=== PATIENT | female | born 1965 | race Caucasian/White ===

== ENCOUNTER 2019-07-19 07:00 | Outpatient (RCR) | payer BC, SELFPAY ==
--- NOTE | 2019-06-28 13:58 | HP.PTEVAL_ITS ---
Patient's Visit Information AMANDA TAN is a 54 year old F referred to Physical Therapy by JERRY BIRMINGHAM with a diagnosis of L shoulder pain. Date of Evaluation: 06/28/19 Physical Therapist: Michael Morrow, PT, ATC - Visit Plan Frequency: 2x /Week Duration: 4 Weeks Plan: c/s retraction ex's, postural education, PROM/MOBS to c/s, scap stab ex's, and HEP - Subjective Findings: Pt reports her L shoulder has been sore for 3 weeks. Pt reports she was moving a tall heavy dresser when she exoerienced L shoulder pain. Pt reports the pain progressively worsened which is why she went to her dr's. Pt reports she had xrays which revealed mild OA. Pt received a cortisone injeection on the , and so now she feels a little better. Pt notes sleep difficulty secondary to pain at this time. Pt has tingling and numbness which started one week ago that extends down her L UE all the way to her median nerve distribution. Pt has mild L sided neck pain. 4/10 pain at rest, 6/10 pain at rest (sitting in the chair at the dentist. Pt is R hand dom. - Pain L shoulder pain Pain Intensity (Out of 10): 4 Pain Intensity Range: 6 - Objective Neuro: L UE sensation is hyposensitive to light touch. R UE is WNL. B Bicepital reflex= 2/3. Palpation: Paiin on the distribution of the supraspinatus tendon. No obvious deformity. ROM: R shoulder flex= 165, abd= 165, ER= 90, IR WNL; L shoulder flex= 160, abd= 165, ER= 90, IR WNL. MMT: L slhoulder flex and ER= 4- /5. All other B UE MMT 5/5 throughout. C/S ROM: Pt is limited with ext, retraction, and L SB. all other motions WNL. Repeated movements of the C/S: RFIS provokes L UE radiculopathy. RRIS provoked pain at first, but then had NE afterwards. Special tests: pos compression and distraction test of the c/s - Goals Goal 1:: Decrease neck pain x 50% to aid wtih sleep Goal Time Frame: 2-4 Weeks Goal 2:: Decrease the frequency and intensity of L UE radiculopathy x 50% to aid with IADL's Goal Time Frame: 2-4 Weeks Goal 3:: Increase C/S ROM to WNL to aid with decreasing neck pain Goal Time Frame: 2-4 Weeks Goal 4:: I with HEP Goal Time Frame: 2-4 Weeks - Rehabilitation Potential Physical Therapy Diagnosis: Pt has L shoulder pain, limited cervical spine ROM, and L UE radiculopathy secondary to c/s disk derrangement. Rehabilitation Potential: Good - Anticipated Interventions Patient/Client Instruction: Educate patient on: Condition, Plan of Care For the Purpose of:: To improve self management Therapeutic Exercise to Include: Strength training, Endurance training, Postural training, Flexibilty training, Passive ROM, Active ROM, Jermaine Exercises, Scapular Strength/Stabilization For the Purpose of:: To decrease pain, To increase ROM, To improve muscle performance and motor function Manual Therapy Techniques to Include: Mobilization, Soft tissue mobilization For the Purpose of:: To decrease pain, To increase ROM Cryotherapy (ice pack, ice massage): Yes Thermo therapy (hot pack): Yes For the Purpose of:: To decrease pain Thank you for the opportunity to evaluate your patient. For Medicare and Medicare HMO plans, please review the plan of care and approve it. It will need to be FAXED BACK to us at [phone] for Medicare purposes. For Medicare only, by signing this I certify the plan of care. Please let me know if there are questions or concerns regarding this plan of care. Physician Signature: Date:
--- NOTE | 2019-10-18 09:15 | HP.PT.NRP ---
AMANDA TAN was seen in my office for initial evaluation on 06/28/19. The following Plan of Care was established for this patient: Initial Frequency: 2x /Week Initial Duration: 4 Weeks Patient/Client Instruction: Educate patient on: Condition, Plan of Care For the Purpose of:: To improve self management Therapeutic Exercise to Include: Strength training, Endurance training, Postural training, Flexibilty training, Passive ROM, Active ROM, Jermaine Exercises, Scapular Strength/Stabilization For the Purpose of:: To decrease pain, To increase ROM, To improve muscle performance and motor function Manual Therapy Techniques to Include: Mobilization, Soft tissue mobilization For the Purpose of:: To decrease pain, To increase ROM Cryotherapy (ice pack, ice massage): Yes Thermo therapy (hot pack): Yes For the Purpose of:: To decrease pain This patient was last seen in our office . Pertinent comments regarding their Physical therapy will appear below: Pt was treated for 6 visits for L shoulder pain through the date of 07/19/19. Pt has not returned through this date and is discontinued at this time. At this point I will be discontinuing this patient from physical therapy. I would be happy to see this patient again in the future if found appropriate by the physician. Thank you! Michael Morrow, PT, ATC
== END 2019-07-19 19:00 | disposition home or self-care (01) ==
LOC: PT 07:00
PROVIDERS: Family Provider Nurse Practitioner Family; PCP Nurse Practitioner Family
DX: M75.42 Impingement syndrome of left shoulder (principal); M75.22 Bicipital tendinitis, left shoulder
CPT/HCPCS: 97012; 97110; 97140; 97161